=== PATIENT | female | born 1935 | race Caucasian/White ===

== ENCOUNTER → 2018-05-26 | Outpatient (CLI) | payer MEDICARE ==
[2014-03-12 11:15] VITALS: BP 102/51
[~2018-05-26] MED LIST: ANAS1TAB PO; OMEP20TA8 PO; OXYB5TAB PO; PROP80CA PO
--- NOTE | 2018-05-26 14:25 | KCIC ---
EXAMINATION: Magnetic resonance imaging (MRI) of the cervical spine without contrast 05/26/2018 12:30 PM HISTORY: Chronic neck pain and stiffness. Hyperflexibility of the knees and ankles. TECHNIQUE: Multiplanar multi-weighted MRI of the cervical spine was performed without intravenous contrast using the standard cervical spine protocol. Contrast information: None administered COMPARISON: None available. FINDINGS: The alignment of the cervical spine is normal. Vertebral bodies demonstrate normal signal intensity on all sequences. No acute fracture is identified; however, if trauma is suspected, a CT scan would be a more sensitive examination for fractures. The craniocervical junction is normal. The visualized portions of the skull base and the posterior fossa are normal. The spinal cord demonstrates normal signal intensity on all sequences. There is mild disc height loss at C5-C6 with mild anterior marginal osteophytosis. No soft tissue abnormality is identified. Normal signal voids are present in the vertebral arteries. C2-C3: There is central disc protrusion. There is mild facet arthropathy. No uncovertebral joint disease. Mild left neuroforaminal stenosis. No spinal canal stenosis. C3-C4: There is a posterior disc osteophyte complex. Moderate left and mild right facet arthropathy. Mild left uncovertebral joint disease. Mild to moderate left neuroforaminal stenosis. No spinal canal stenosis. C4-C5: There is a posterior disc osteophyte complex. Mild to moderate facet arthropathy. Mild uncovertebral joint disease. Mild to moderate left and mild right neuroforaminal stenosis. Mild spinal canal stenosis. C5-C6: There is a posterior disc osteophyte complex asymmetric to the right. Mild facet arthropathy. Moderate uncovertebral joint disease. Moderate to severe right and mild left neuroforaminal stenosis. Mild spinal canal stenosis without deformity of the cord. C6-C7: Posterior disc osteophyte complex with central disc protrusion. Mild facet arthropathy. Mild uncovertebral joint disease. Mild neuroforaminal stenosis. No spinal canal stenosis. C7-T1: Disc is normal in configuration. No significant neuroforaminal or spinal canal stenosis. IMPRESSION: Mild degenerative changes of the cervical spine, as described in detail above. IMPRESSION: Mild degenerative changes of the cervical spine as described in detail above. Electronically signed by: Jolene Begum MD (05/26/2018 2:21 PM) [facility]
== END | disposition home or self-care (01) ==
LOC: KCIC MRI 12:18
PROVIDERS: ATTEND Physical Medicine & Rehabilitation
DX: M50.223 Other cervical disc displacement at C6-C7 level (principal); M47.892 Other spondylosis, cervical region; M48.02 Spinal stenosis, cervical region; M25.78 Osteophyte, vertebrae
CPT/HCPCS: 72141

== ENCOUNTER → 2018-06-20 | Outpatient (CLI) | payer MEDICARE ==
[2014-03-12 11:15] VITALS: BP 102/51
[~2018-06-20] MED LIST changes: +GABA-585 PO; +IOHEXOL 180 MG/ML 10 ML VIAL. ONE; +MULT1TAB52 PO; +OXYB5TAB7 PO; +methylPREDNISolone ACETATE 40 MG/ML VIAL. ONE; +methylPREDNISolone ACETATE 80 MG/ML VIAL. ONE
--- NOTE | 2018-06-21 04:31 | PAIN ---
DATE OF SERVICE: 06/20/2018 INITIAL CONSULTATION FOR PAIN CLINIC CHIEF COMPLAINT: Neck and right upper extremity pain. HISTORY OF PRESENT ILLNESS: This is an 83-year-old female who presents with history of pain in the base of the neck and right shoulder, worse for many years, but increasing over the past 6 to 7 months without any specific injury or action that she is aware of. The patient reports the pain has been getting worse day to day, worse with activity, repetitive motion, using the right upper extremity to lift items or reach over her head with her right hand, even getting dressed, reaching back to put her arm through a sleeve. The patient reports the pain is aching, throbbing, intermittent in intensity, radiating into posterior scapula, into the right lateral deltoid and some into the collar bone as well, worse with rotational motion of the cervical spine to the right. The patient has had some rehabilitative physical therapies done without significant improvement and has been seen by a business professor again without significant improvement as well. The patient also some low back pain and right hip pain, but her primary complaint and chief complaint is the right neck and shoulder, right upper extremity pain. 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 The patient reports the pain awakens her from sleep at night, but not every night, it does not affect her bowel or bladder control, does not affect her ability to walk significantly. The patient rates her disability rate from 0-10, 10 being the worst, as a 5 at the family and home responsibilities and occupation, 10 with recreation and social activity, 1 with self-care and 1 with life support activities. The patient did have MRI scan of the cervical spine showing mild degenerative changes C3-C4, moderate left and moderate right facet arthropathy. C4-C5 shows posterior disk osteophyte complex with mild to moderate facet arthropathy and [id number] left and mild right neural foraminal stenosis, C5-C6 shows a posterior disk osteophyte complex, asymmetric to the right with [id number] right and left neural foraminal stenosis. C6-C7 shows a central disk protrusion with mild neural foraminal stenosis as well. The patient reports no loss of motor function, but significant fatigability of the right upper extremity with repetitive motions and even driving a car. PAST MEDICAL HISTORY: Significant for hearing loss, cataracts, arthritis and esophageal strictures. PREVIOUS SURGERY: Include cholecystectomy, right mastectomy and nasal surgery reconstruction. CURRENT MEDICATIONS: The patient's current medications include gabapentin, oxybutynin, multivitamin and omeprazole. ALLERGIES: The patient has no known drug allergies. FAMILY HISTORY: Significant for cancers of various types. SOCIAL HISTORY: The patient does not drink alcohol, does not smoke, does not use any illegal, illicit or recreational drugs. She is and lives with her spouse. Again is a primary caregiver for her spouse in the home, which is a very physical demanding responsibility. REVIEW OF SYSTEMS: The patient's review of systems is positive for those items mentioned in the history of present illness. All systems reviewed and otherwise negative. It is complete, full and well documented on the patient's chart. PHYSICAL EXAMINATION: VITAL SIGNS: The patient's blood pressure 144/81, pulse 90, respirations 18, temperature 98.0 degrees Fahrenheit, height is 5 feet 5 inches and weight is 163 pounds. GENERAL: The patient is awake, alert, oriented, appropriate, very pleasant demeanor. HEENT: Head shows normocephalic and atraumatic. Extraocular movements are intact and symmetrical. Oral cavity, mucous membranes are moist and pink. Dentition is intact. NECK: Shows anterior throat is supple without palpable lymphadenopathy noted. Swallow reflex is symmetrical. CHEST: Shows normal on inspection. Breath sounds are clear to auscultation bilaterally. HEART: Shows S1 and S2 clear. No murmurs are auscultated. ABDOMEN: Soft, nontender and nondistended. No palpable organomegaly is noted. No rebound or guarding demonstrated. BACK: Shows spine grossly in the midline, normal appearing cervical lordotic curvature, thoracic kyphotic curvature and lumbar lordotic curvature. Cervical paraspinous muscle shows symmetrical on inspection. On palpation shows some moderate tenderness diffusely, but only in the inferior aspect of the cervical paraspinous musculature without radiation. No trigger points. No atrophy or hypertrophy. Some moderate tenderness with palpation in the superior medial trapezius on the right as well, but without radiation. The patient's neck shows good rotation motion both past 45 degrees right and left as well as full extension, full forward flexion without significant difficulty or pain reported. EXTREMITIES: The patient's upper extremities show deep tendon reflexes 2+ in the biceps and triceps tendons. Motor exam is approximately 4 on a scale of 5, right wrecking mechanic, bicep and tricep flexion at 5/5 on the left. Peripheral pulses are 2+ radial distribution. No peripheral edema is noted bilaterally. Shoulder shrug is strong and intact without loss of strength on resistance as is abduction of shoulder at 90 degrees without loss of strength with some moderate pain reported in the base of the shoulder and the posterior scapula with each of these maneuvers on the right side only and not on the left. SKIN: The patient's skin shows warm and dry, good turgor. No edema. No sores, rashes or bruising. IMPRESSION: 1. This is an 83-year-old female with a long history of neck and right upper extremity pain, worse over the past 6-7 months in a radicular fashion. 2. MRI scan of cervical spine as noted. 3. Arthritis. PLAN: Options were discussed with the patient including conservative medical management, physical therapy, interventional techniques. She would like to pursue with interventional techniques. We discussed a cervical epidural steroid injection using description as well as anatomic models to describe the procedure. Risks were then discussed including, but not limited to bleeding, infection, possibility of epidural hematoma, subsequent neurologic compromise, dural puncture, headaches, spinal cord and/or nerve damage, side effects of steroid medication and poor results regarding pain control. The patient understands and wished to proceed. The patient will return to the clinic in approximately 2 weeks for followup, was counseled as to return appointment, activity level and side effects to be aware of. DIAGNOSES: Cervical radiculopathy with cervical degenerative disk disease and cervical spinal stenosis. PROCEDURE: Cervical epidural steroid injection, translaminar approach C6-C7 level using C-arm fluoroscopic guidance under sterile prep and drape using local anesthetic. MEDICATION INJECTED: A total of 120 mg Depo-Medrol plus 5 mL of preservative-free normal saline and 2 mL of Isovue for contrast. CONDITION AT DISCHARGE: Stable. The patient tolerated the procedure well and had no complications. MARICEL MATTHEW MD DR: KYLE/corey JOB#: [id number] / [id number] LALITHA Brownlee MD
== END | disposition home or self-care (01) ==
LOC: PNCL 12:51
PROVIDERS: ATTEND Anesthesiology
DX: M50.123 Cervical disc disorder at C6-C7 level with radiculopathy (principal); M48.02 Spinal stenosis, cervical region; M19.90 Unspecified osteoarthritis, unspecified site; Z90.49 Acquired absence of other specified parts of digestive tract; Z90.11 Acquired absence of right breast and nipple; Z98.890 Other specified postprocedural states; Z79.899 Other long term (current) drug therapy
CPT/HCPCS: 62321; J1030; J1040; Q9965

== ENCOUNTER → 2018-10-11 | Outpatient (CLI) | payer MEDICARE ==
[2014-03-12 11:15] VITALS: BP 102/51
[~2018-10-11] MED LIST changes: +BUPIVACAINE MPF 0.25% 10 ML VIAL. ONE; -PROP80CA PO; +PROP80CA53 PO; -methylPREDNISolone ACETATE 40 MG/ML VIAL. ONE
--- NOTE | 2018-10-11 22:41 | PAIN ---
DATE OF SERVICE: 10/11/2018 PROGRESS NOTE FOR PAIN CLINIC DIAGNOSES: 1. Cervical radiculopathy with cervical spinal stenosis and cervical degenerative disk disease. 2. Right hip joint pain with primary osteoarthritis, right hip joint. HISTORY OF PRESENT ILLNESS: The patient is an 83-year-old female who returns for followup status post cervical epidural steroid injection x 1 on 06/20/2018. The patient reports she got 100% improvement with the neck and right shoulder and arm pain. The patient reports her chief complaint today is right hip joint pain, which she has had for a long period of time, multiple years, but worse over the past few months. Her recently and she was taking care of him and feels that she put more stress on her back, her leg and her knee on the right side. The patient reports her hip is painful with walking, standing and weightbearing, especially stepping on a stair, climbing stairs or stepping up on a curb, with significant pain radiating to the right groin as well as in the posterior gluteus and into the anterior thigh and to some extent to the knee. The patient reports it is an 8 on a scale of 10 at all times, average, worst and least over the past week and is an 8 today. The patient reports it is sharp at times in the groin, constant, dull, aching, worse with weightbearing, better with sitting or lying down. It does not awaken her from sleep at night. The patient reports no new motor or sensory deficits. No new bowel or bladder incontinence or other complaints, except for the right knee pain, which has similar weightbearing pain as well. PHYSICAL EXAMINATION: VITAL SIGNS: The patient's blood pressure is 151/69, pulse 87, respirations 18 and temperature 97.7 degrees Fahrenheit. Height is 5 feet 5 inches and weight is 161 pounds. GENERAL: The patient is awake, alert, oriented, appropriate, very pleasant demeanor. HEENT EXAMINATION: Shows normocephalic and atraumatic. Extraocular movements are intact and symmetrical. Oral cavity, mucous membranes are moist and pink. Dentition is intact. NECK: Shows anterior throat supple, without palpable lymphadenopathy noted. Swallow reflex is symmetrical. CHEST: Shows normal on inspection. Breath sounds are clear to auscultation bilaterally. HEART: Shows S1, S2 clear. No murmurs auscultated. ABDOMEN: Soft, nontender and nondistended. No palpable organomegaly is noted. No rebound or guarding demonstrated. BACK: Shows spine grossly in the midline. Normal-appearing thoracic kyphosis and lumbar lordotic curvature. Cervical paraspinous muscle shows symmetrical on inspection. On palpation, there is some mild tenderness, but only very diffusely with deep palpation in the inferior aspect of the right superior trapezius and the inferior cervical paraspinous musculature. The patient has good rotational motion of cervical spine, both laterally as well as extension and flexion without difficulty. EXTREMITIES: Upper extremities show deep tendon reflexes at 2+ in the biceps and triceps tendons. Motor exam is approximately 4 on a scale of 5 with right cod clerk strength and 5/5 on the left. Peripheral pulses are 2+ radial distribution. No peripheral edema is noted. The patient's lower extremities show deep tendon reflexes 1+ in the patellar and tendo calcaneus tendons. Motor exam is strong with 5/5 dorsiflexion, extension, quadriceps and hamstring flexion. The patient has got positive David's maneuver on the right side, however, with knee flexion and external rotation of the right hip, with significant pain in the groin itself as well as in the posterior hip and gluteus. The patient's left side is negative. Options were discussed with the patient. The patient's old chart was reviewed as was her current medication regimen updated. Current review of systems updated today as well. We will proceed with a right intra-articular hip joint injection with fluoroscopic guidance. Risks were again discussed including, but not limited to bleeding, infection, possibility of intravascular injection sequelae, spread of local anesthetic and numbness, side effects of steroid medication, exposure to fluoroscopy and poor results regarding pain control. The patient understands and wishes to proceed. The patient will return to the clinic in approximately 2 weeks for followup. She was counseled as to her return appointment, activity level and side effects to be aware of. DIAGNOSES: Right hip joint pain with primary osteoarthritis, right hip joint. PROCEDURE: Right intra-articular hip joint injection using C-arm fluoroscopic guidance under sterile prep and drape using local anesthetic. MEDICATION INJECTED: A total of 80 mg Depo-Medrol plus 3 mL of 0.25% bupivacaine and 2 mL of contrast. CONDITION AT DISCHARGE: Stable. The patient tolerated the procedure well, had no complications. MARICEL MATTHEW MD DR: Ruth JOB#: [id number] / [id number]
== END | disposition home or self-care (01) ==
LOC: PNCL 10:44
PROVIDERS: ATTEND Anesthesiology
DX: M16.11 Unilateral primary osteoarthritis, right hip (principal); M48.02 Spinal stenosis, cervical region; M50.10 Cervical disc disorder with radiculopathy, unspecified cervical region
CPT/HCPCS: 20610; 77002; J1040; J3490; Q9965

== ENCOUNTER → 2018-12-04 | Outpatient (CLI) | payer MEDICARE ==
[2014-03-12 11:15] VITALS: BP 102/51
[~2018-12-04] MED LIST changes: +methylPREDNISolone ACETATE 40 MG/ML VIAL. ONE
--- NOTE | 2018-12-04 16:50 | PAIN ---
DATE OF SERVICE: 12/04/2018 PROGRESS NOTE FOR PAIN CLINIC DIAGNOSES: 1. Cervical radiculopathy with cervical spinal stenosis and cervical degenerative disk disease. 2. Right hip joint pain with primary osteoarthritis of the right hip. 3. Right sacroiliitis. HISTORY OF PRESENT ILLNESS: The patient is an 83-year-old female who returns for followup status post right intraarticular hip joint injection with near 100% improvement after the injection. The patient did very well, does have some significant pain, however, now in the low back and the right side of the posterior hip, which is her chief complaint. The patient reports no new motor or sensory deficits, no new bowel or bladder incontinence, but the pain in the low back and right posterior aspect of the hip closer to the spine. The patient reports it is 8 on a scale of 10 at its worst in the past week, 8 on average, 6 at its least and is an 8 today. The patient reports it is radiating, shooting, worse with getting up from bed or if she sits for a long time, greater than 30-40 minutes or standing too long. The patient reports the pain in the groin that was present after her last injection is now gone, but the pain is now in the posterior aspect of the low back and right side. The patient reports no new motor or sensory deficits, no new bowel or bladder incontinence or other complaints. PHYSICAL EXAMINATION: VITAL SIGNS: The patient's blood pressure is 140/70, pulse 97, respirations 18, temperature 98.1 degrees Fahrenheit, height is 5 feet 5 inches, weighs 160 pounds. GENERAL: The patient is awake, alert, oriented, appropriate, very pleasant demeanor. HEENT: Shows normocephalic, atraumatic. Extraocular movements are intact and symmetrical. Oral cavity: Mucous membranes are moist and pink. Dentition is intact. NECK: Shows anterior throat supple without palpable lymphadenopathy noted. Swallow reflex is symmetrical. CHEST: Shows normal on inspection. Breath sounds are clear to auscultation bilaterally. HEART: Shows S1, S2 clear. No murmurs auscultated. ABDOMEN: Soft, nontender, nondistended. No palpable organomegaly is noted. No rebound or guarding demonstrated. MUSCULOSKELETAL: The back shows spine grossly in the midline. Slight exaggeration of thoracic kyphosis, some minor flattening of lumbar lordotic curvature. Lumbar paraspinous muscle shows symmetrical on inspection, on palpation shows some moderate tenderness diffusely, but only diffusely without significant radiation. The patient's lower extremities show deep tendon reflexes at 2+ in the patellar and tendo calcaneus tendons are 1+. Motor exam is strong with 5/5 dorsiflexion, extension, quadriceps and hamstring flexion and symmetrical. Peripheral pulses are 1+ posterior tibial. No peripheral edema is noted. The patient's back shows lumbar paraspinous musculature is symmetrical on inspection, with palpation shows some moderate tenderness inferiorly in the right side, but not the left and there is some significant tenderness in the superior aspect of the right sacroiliac joint with palpation. Left side is negative. The patient shows positive Gaenslen's maneuver with external rotation and posterior displacement of the lower leg over the side of the bed on the right side only. Left side is negative. Options were discussed with the patient. The patient's old chart was reviewed, as her current medication regimen updated, current review of systems updated today as well and we will proceed with a right sacroiliac joint injection today with fluoroscopic guidance. Risks were again discussed including, but not limited to bleeding, infection, possibility of intravascular injection sequelae, spread of local anesthetic and numbness, side effects of steroid medication, exposure to fluoroscopy and poor results regarding pain control. The patient understands and wished to proceed. The patient will return to the clinic in approximately 2 weeks for followup, was counseled on return appointment, activity level and side effects to be aware of. DIAGNOSIS: Right sacroiliitis. PROCEDURE: Right sacroiliac joint injection using C-arm fluoroscopic guidance under sterile prep and drape using local anesthetic. MEDICATION INJECTED: A total of 80 mg of Depo-Medrol plus 3 mL of 0.25% bupivacaine after negative aspiration and 2.5 mL of Isovue. CONDITION AT DISCHARGE: Stable. The patient tolerated the procedure well, had no complications. MARICEL MATTHEW MD DR: KYLE/corey JOB#: [id number] / [id number]
== END ==
LOC: PNCL 12:45
PROVIDERS: ATTEND Anesthesiology
DX: M46.1 Sacroiliitis, not elsewhere classified (principal)
CPT/HCPCS: 77002; G0260; J1040; J3490; Q9965; J1030; 27096

== ENCOUNTER → 2019-06-20 | Outpatient (CLI) | payer MEDICARE ==
[2014-03-12 11:15] VITALS: BP 102/51
[~2019-06-20] MED LIST changes: +NAPR220C4 PO; +OXYB-36 PO; -OXYB5TAB PO; +OXYB5TAB10 PO; -OXYB5TAB7 PO; +PSEU120T9 PO; -methylPREDNISolone ACETATE 40 MG/ML VIAL. ONE
--- NOTE | 2019-06-21 01:08 | PAIN ---
DATE OF SERVICE: 06/20/2019 PROGRESS NOTE FOR PAIN CLINIC DIAGNOSES: 1. Cervical radiculopathy with cervical spinal stenosis and cervical degenerative disk disease. 2. Right hip joint pain with primary osteoarthritis, right hip joint. 3. Right sacroiliitis. HISTORY OF PRESENT ILLNESS: The patient is an 84-year-old female who returns for followup status post previous right hip joint injection as well as right sacroiliac joint injection and cervical epidural steroid injection; all either a year ago exactly or last summer. The patient reports her main complaint is her right hip now with walking and standing, especially standing with all of her weight on one leg or stepping up a curb or stair, significant pain into the groin on the right side as well as into the posterior gluteus and posterior hip. The patient reports also some pain in the low back itself and also in the base of the neck and shoulders, but her main complaint is the right hip with walking. The patient reports it is becoming more burning and aching, it is constant pain on and off in intensity, but always present with aching and shooting and again some radiating pain into the groin. The patient reports it is an 8/10 on a scale of 10 at all times, average worst and least and is an 8 on a scale of 10 today. The patient reports initially she was doing much better, was doing working activities, household activities with much greater ease and comfort, sleeping better at night, now it is beginning to awaken her from sleep about every 4-5 hours in the right hip and leg and groin. The patient reports she cannot sit or lie down for too long as it does awaken her. PHYSICAL EXAMINATION: VITAL SIGNS: The patient's blood pressure 135/83, pulse 94, respirations 16, temperature 97.6 degrees Fahrenheit. Weight is 159 pounds. GENERAL: The patient is awake, alert, oriented, appropriate, very pleasant demeanor. HEENT: Shows normocephalic, atraumatic. Extraocular movements are intact and symmetrical. Oral cavity shows mucous membranes are moist and pink. Dentition is intact. NECK: Shows anterior throat supple without palpable lymphadenopathy noted. Swallow reflex is symmetrical. CHEST: Shows normal on inspection. Breath sounds are clear bilaterally. HEART: Shows S1 and S2 clear. No murmurs auscultated. ABDOMEN: Soft, nontender, nondistended. BACK: Shows spine grossly in the midline. Slight exaggerated thoracic kyphosis and some minor flattening of the cervical lordotic curvature and lumbar lordotic curvature. Cervical paraspinous muscle shows symmetrical on inspection, with palpation shows some mild tenderness diffusely in the inferior aspect of the cervical paraspinous musculature bilaterally. The patient's lumbar paraspinous muscle shows moderate tenderness and some mild tenderness over the posterior superior iliac spine on the right side only, but not over the sacroiliac region itself. Left side is nontender. EXTREMITIES: The patient's lower extremities show deep tendon reflexes at 2+ in the patellar, 1+ tendo-calcaneus tendons. Motor exam is strong with 5/5 dorsiflexion and extension bilaterally. The patient's right hip shows significant tenderness with external rotation with a positive David's maneuver on the right side only. Left side is negative. Straight leg raise is noted to be negative for radicular symptoms bilaterally. Peripheral pulses are 1+ posterior tibia. No peripheral edema. Options were discussed with the patient. The patient's old chart was reviewed as her current medication regimen updated. Current review of systems updated today as well. We will proceed with a right intraarticular hip joint injection today with fluoroscopic guidance. Risks were again discussed including, but not limited to bleeding, infection, possibility of intravascular injection sequelae, spread of local anesthetic and numbness, side effects of steroid medication, exposure to fluoroscopy and poor results regarding pain control. The patient understands and wished to proceed. The patient will return to clinic in approximately two weeks for followup. She was counseled on return appointment, activity level and side effects to be aware of. DIAGNOSIS: Primary osteoarthritis of right hip joint with right hip joint pain. PROCEDURE: Right intra-articular hip joint injection using C-arm fluoroscopic guidance under sterile prep and drape using local anesthetic. MEDICATIONS INJECTED: A total of 80 mg of Depo-Medrol plus 3 mL of 0.25% bupivacaine and 2 mL of contrast. CONDITION AT DISCHARGE: Stable. The patient tolerated the procedure well, had no complications. MARICEL MATTHEW MD DR: KYLE/corey JOB#: [id number] / [id number]
== END ==
LOC: PNCL 13:32
PROVIDERS: ATTEND Anesthesiology
DX: M16.11 Unilateral primary osteoarthritis, right hip (principal); M50.10 Cervical disc disorder with radiculopathy, unspecified cervical region; M48.02 Spinal stenosis, cervical region; M46.1 Sacroiliitis, not elsewhere classified
CPT/HCPCS: 20610; 77002; J1040; J3490; Q9965